=== PATIENT | male | born 1980 | race African-American/Black ===

== ENCOUNTER 2021-02-25 05:20 | Day surgery (SDC) | payer OTHER ==
[~2021-02-25] VITALS: Ht 167.6 cm; Wt 104.1 kg
[2021-02-25 06:14] LABS: BASOPHILS 0.3 % (0-2); EOSINOPHILS 2.4 % (0-7); HEMATOCRIT 46.7 % (42.0-54.0); HEMOGLOBIN 15.3 g/dL (13.5-17.5); IMMATURE GRANULOCYTES 0.1 % (0-5); LYMPHOCYTES 32.7 % (15-50); MCH 27.2 pg (26.0-34.0); MCHC 32.8 g/dL (31.0-37.0); MCV 83.1 fL (80.0-100.0); MONOCYTES 8.8 % (2-11); NEUTROPHIL ABS# 3.74 10x3/uL (1.78-5.38); NEUTROPHILS 55.7 % (40-80); PLATELET COUNT 284 10x3/uL (130-400); RBC 5.62 10x6/uL (4.20-6.10); RDW 12.8 % (11.5-14.5); WBC 6.7 10x3/uL (4.8-10.8)
[2021-02-25 06:34] LABS: ANION GAP 14.4 mmol/L (8-16); CALCIUM 9.6 mg/dL (8.5-10.1); CARBON DIOXIDE 25.7 mmol/L (21.0-32.0); CREATININE - SERUM 1.3 mg/dL (0.6-1.3); POTASSIUM - SERUM 4.1 mmol/L (3.5-5.1)
[2021-02-25 06:41] VITALS: BP 137/94; Ht 167.6 cm; Wt 104.1 kg
--- NOTE | 2021-02-25 13:28 | NUR ---
1329 DR. MIRIAN MURILLO.
--- NOTE | 2021-02-26 16:39 | OP ---
PATIENT NAME: ANGEL RAMIREZ MEDICAL RECORD: [id number] :82 LOCATION:D.OPS ADMISSION DATE: SURGEON: CALEB VELA MD DATE OF OPERATION: 02/25/2021 PREOPERATIVE DIAGNOSIS: Fecal occult blood positivity. POSTOPERATIVE DIAGNOSIS: Fecal occult blood positivity with no evidence of occult bleeding in the large bowel. PROCEDURE: Total colonoscopy to cecum. SURGEON: Caleb Vela MD BARREL BUILDER: None. BLOOD LOSS: Minimal. ANESTHESIA: IV sedation. COMPLICATIONS: None. The risks, possible complications, and alternatives of the procedure were explained to the patient. He elects to proceed. The discussion specifically included, but was not limited to bleeding, requiring emergency reoperation, infection as well as endoscopic perforation. ENDOSCOPIC COURSE: The patient was conveyed to the endoscopy suite electively on 02/25/2021. IV access was very challenging even under ultrasound guidance. IV sedation was induced by the anesthesia staff. The patient was placed in the [place] position. Digital rectal examination was performed. A colonoscope was inserted through the anus. It was easily advanced to the cecum. The prep was adequate. I slowly withdrew the endoscope. I irrigated and aspirated extensively. I dragged the folds. The pullback was greater than a 14-minute pullback. A combination of normal imaging and narrow band imaging were utilized. Retroflex view was obtained in the rectum. I then unretroflexed the scope and removed it under direct vision. As I identified no source for occult bleeding, I would recommend that the patient undergo an upper endoscopy. Due to the very challenging IV access situation, which ultimately required an external jugular IV, I would recommend that his EGD be performed at a hospital. TRANSINT:[id number] Voice Confirmation ID: [id number] DOCUMENT ID: [id number] cc: JOCY Ashton ROBERT MD at 1639 CC: [id number] DICTATION DATE: 02/25/21 0526 BARREL BUILDER: 02/25/21 1415 [facility] 02/25/[address] [id number]
--- NOTE | 2021-02-26 16:39 | HP ---
PATIENT: ANGEL RAMIREZ MEDICAL RECORD: [id number] ACCOUNT: [id number] LOCATION:[facility] : 82 ADMISSION DATE: 02/25/21 PCP: No PCP HISTORY AND PHYSICAL EXAMINATION CHIEF COMPLAINT: Fecal occult blood positivity. HISTORY OF PRESENT ILLNESS: The patient has fecal occult blood positivity. He has had no melena. He states that he has had one episode of hematochezia. An uncle had colon cancer. He has had no abdominal pain. He is here for colonoscopy today. He has never undergone upper and lower endoscopy before. He had fecal occult blood positivity times 3. MEDICATIONS AT THE JAIL: None. ALLERGIES: No known drug allergies. SOCIAL HISTORY: Former smoker, quit in 2006. REVIEW OF SYSTEMS: Negative for CVA or seizures. Negative for diabetes or thyroid problems. PHYSICAL EXAMINATION: GENERAL: The patient does not appear acutely ill. He does not appear chronically ill. VITAL SIGNS: Reviewed. EARS: External ears appear normal. EYES: Extraocular movements are intact. NECK: Trachea is midline. CHEST: No intercostal retractions. PULMONARY: Nonlabored. No stridor. ABDOMEN: No peritonitis with movement. IMPRESSION: Fecal occult blood positivity. PLAN: Colonoscopy. TRANSINT:[id number] Voice Confirmation ID: [id number] DOCUMENT ID: [id number] cc: JOCY Ashton, RADHA TONY at 1639 CC: [id number] DICTATION DATE: 02/25/21 1027 SENIOR SALES ASSOCIATE: 02/25/21 1052 [facility] 02/25/21 [id number] [place] [address]
== END 2021-02-25 14:35 ==
LOC: D.OPS 05:20
PROVIDERS: ATTEND Surgery
DX: R19.5 Other fecal abnormalities (principal)